=== PATIENT | female | born 1970 | race Caucasian/White ===

== ENCOUNTER → 2016-11-02 | Outpatient (CLI) | payer OTHER ==
--- NOTE | 2016-11-06 07:46 | MAM ---
History: Abnormal mammogram DATE OF SERVICE: 11/02/2016 Services provided: Bilateral full field digital diagnostic mammography. CAD, the images were reviewed with R2 computer aided detection. FINDINGS: Routine views are obtained. Last mammogram was in 2011. The heterogeneously dense glandular parenchymal pattern has slightly receded with overall stable distribution. No dominant mass, architectural distortion or clustered microcalcification. IMPRESSION: Benign exam. Recommendation: Routine annual mammography. Mastodynia recommendations were given to the patient. BIRAD CATEGORY: 2 BENIGN Electronically signed by: Priyanka Iraheta MD 11/06/2016 7:46 AM CDT
== END | disposition home or self-care (01) ==
LOC: MAMMO 15:17
PROVIDERS: ATTEND Obstetrics & Gynecology
DX: N63 Unspecified lump in breast (principal)

== ENCOUNTER → 2020-05-05 | Outpatient (CLI) | payer BC | LOC: GMAL 16:53 | PROVIDERS: ATTEND Family Medicine | DX: E03.9 Hypothyroidism, unspecified (principal); R53.83 Other fatigue; Z79.899 Other long term (current) drug therapy ==